=== PATIENT | female | born 1990 | race Caucasian/White ===

== ENCOUNTER 2016-08-30 12:30 | Emergency (ER) | payer MEDICAID ==
[2016-08-30 12:38] VITALS: O2SAT 97
--- NOTE | 2016-08-30 14:20 | EDPHY ---
H & P Time Seen by Provider: 08/30/16 14:12 HPI/ROS: CHIEF COMPLAINT: Struck in head by rock HISTORY OF PRESENT ILLNESS: This patient is a 25 year old female complaining of head and neck pain secondary to being struck by a rock yesterday afternoon. She states someone was working with a weedwhacker which threw a stone up that struck her in the back of the head. She denies fall or loss of consciousness. She had a significant pain to the back of her head/neck initially, but took two Tylenol and was able to go to work yesterday evening. While at work, she states she began to feel dizzy and nauseous, and began to develop a stiff neck and pain in her head, neck , and shoulder. She states her pain woke her up several times in the night. Today, she states she continues to feel a stiff neck and shoulder on the right. She also has pain localized to the back of her head. No BOWEN. No vision changes , vomiting, or other associated symptoms. REVIEW OF SYSTEMS: Constitutional: No weakness Eyes: No visual changes or eye pain ENT: No dental trauma Neck: Stiff, mostly on the right. Respiratory: No shortness of breath Cardiac: No chest pain Gastrointestinal: Nausea. No abdominal pain, no vomiting Back: No pain or injury Genitourinary: No hematuria Musculoskeletal: No joint pain Skin: No lacerations Past Medical/Surgical History: Lyme disease, meningitis Social History: Significant other at bedside. . Smoking Status: Former smoker Physical Exam: General Appearance: Alert, pleasant Head: No swelling or tenderness over the occiput Eyes: PERRLA, EOMI ENT, Mouth: Normal inspection Neck: Upper midline and paraspinous tenderness. No swelling Respiratory: No chest wall tenderness Cardiovascular: Regular rate and rhythm Abdomen: Abdomen is soft and non tender Skin: No lacerations, no abrasions Back: No midline T/L/S tenderness Extremities: Normal inspection Neurological: A&Ox3, normal motor function, normal sensory exam, cranial nerves intact Psychiatric: Mood and affect normal Constitutional: Initial Vital Signs Temperature (C) 36.6 C 08/30/16 12:35 Heart Rate 66 08/30/16 12:35 Respiratory Rate 17 08/30/16 12:35 Blood Pressure 131/79 H 08/30/16 12:35 O2 Sat (%) 97 08/30/16 12:35 O2 Delivery Mode Room Air Allergies/Adverse Reactions: No Known Allergies Allergy (Unverified 08/30/16 12:35) Home Medications: Medication Instructions Recorded 08/30/16 Medical Decision Making - Diagnostics Imaging Results: Imaging Impressions Cervical Spine X-Ray 08/30/16 14:24 Impression: Negative. Imaging: I viewed and interpreted images myself ED Course/Re-evaluation: This patient is a 25 year old female presenting with neck and head pain after being struck in the head by a rock. Physical exam reveals upper neck midline and paraspinous tenderness. No swelling or abrasions. No head tenderness. Plan for x-ray neck. CT of the cervical spine was considered, but will not complete at this time due as patient is and I have low suspicion for cervical spine fracture, given the mechanism. In addition there is no evidence of intracranial hemorrhage and neuro imaging is not indicated. X-ray negative for acute processes. Plan to discharge home in good condition. She will take Tylenol for pain and follow up with her primary care provider as needed. Return precautions discussed. - Data Points Medications Given: Discontinued Medications Acetaminophen (Tylenol) 650 mg PO EDNOW ONE Stop: 08/30/16 14:25 Last Admin: 08/30/16 14:28 Dose: 650 mg Departure - Departure Disposition: Home, Routine, Self-Care Clinical Impression: Neck contusion Qualifiers: Encounter type: initial encounter Qualified Code(s): S10.93XA - Contusion of unspecified part of neck, initial encounter Condition: Good Instructions: Neck Pain (ED) Additional Instructions: 1. You may take 650mg of Tylenol every 4-6 hours as needed for pain. 2. Follow up with your primary care provider for symptoms unresolved in the next couple days. 3. Return to the emergency department if you develop worsening headache, weakness or numbness, vision changes, vomiting, or other worsening of condition. Referrals: Soni Lim DO [Primary Care Provider] - As per Instructions Stand Alone Forms: Work Excuse Report Scribed for: Ailyn Vázquez Report Scribed by: Lizeth Crawford Date of Report: 08/30/16 Time of Report: 14:52 Physician Review and Approval Statement: 08/30/16 14:52 Portions of this note were transcribed by a ophthalmic medical assistant. I personally performed a history, physical exam, medical decision making, and confirmed accuracy of information the transcribed note.
[2016-08-30] MEDS ORDERED: ACETAMINOPHEN 325 MG TAB PO ONE (14:24)
[2016-08-30 15:14] VITALS: BP 112/76; PULSE 69; RESP 20; TEMP 98.1
== END 2016-08-30 15:13 | disposition home or self-care (01) ==
DX: S10.93XA Contusion of unspecified part of neck, initial encounter (principal); Z87.891 Personal history of nicotine dependence; W20.8XXA Other cause of strike by thrown, projected or falling object, initial encounter

== ENCOUNTER → 2016-09-01 | Outpatient (CLI) | payer MEDICAID | LOC: FIMAGING 10:18 | PROVIDERS: ATTEND Family Medicine | DX: Z34.02 Encounter for supervision of normal first pregnancy, second trimester (principal); Z3A.20 20 weeks gestation of pregnancy ==

== ENCOUNTER → 2016-12-08 | Outpatient (CLI) | payer MEDICAID | LOC: FIMAGING 11:19 | PROVIDERS: ATTEND Family Medicine | DX: Z34.93 Encounter for supervision of normal pregnancy, unspecified, third trimester (principal); Z3A.34 34 weeks gestation of pregnancy ==